=== PATIENT | female | born 1995 | race Caucasian/White ===

== ENCOUNTER 2018-07-02 16:15 | Outpatient (RCR) | payer OTHER ==
[2018-04-09 15:35] VITALS: BP 113/66; PULSE 86; TEMP 98.5
[2018-04-23 14:52] VITALS: BP 118/65; PULSE 95; TEMP 98.4
[2018-05-07 15:06] VITALS: BP 115/60; PULSE 99; TEMP 98
[2018-06-18 15:31] VITALS: BP 110/65; PULSE 95; TEMP 98.4
[~2018-07-02] VITALS: Ht 180.3 cm; Wt 101.0 kg
[2018-07-02 16:31] VITALS: BP 116/58; PULSE 96; TEMP 98.4
== END 2018-07-08 | disposition home or self-care (01) ==
LOC: EUO
DX: J45.909 Unspecified asthma, uncomplicated (principal); Z79.899 Other long term (current) drug therapy
CPT/HCPCS: J2357

== ENCOUNTER 2018-10-01 16:00 | Outpatient (RCR) | payer OTHER ==
[2018-07-17 15:14] VITALS: BP 128/63; PULSE 81; TEMP 98.3
[2018-07-31 15:04] VITALS: BP 124/62; PULSE 100; TEMP 97.6
[2018-08-13 15:36] VITALS: BP 111/63; PULSE 99; TEMP 99.3
[2018-08-18 16:08] VITALS: BP 118/72; PULSE 82; TEMP 98
[2018-09-04 07:06] VITALS: BP 127/65; PULSE 101; TEMP 98.3
[2018-09-18 15:24] VITALS: BP 116/59; PULSE 85; TEMP 98.2
[~2018-10-01] VITALS: Ht 180.3 cm; Wt 104.0 kg
[~2018-10-01 16:00] MED LIST: 00186-0370-20 IH; PROAIR HFA0.09 MG/AC IH
[2018-10-01 16:53] VITALS: BP 111/54; PULSE 96; TEMP 98.2
== END 2018-10-15 | disposition home or self-care (01) ==
LOC: EUO
DX: J45.909 Unspecified asthma, uncomplicated (principal)
CPT/HCPCS: J2357

== ENCOUNTER 2018-10-16 15:18 | Outpatient (RCR) | payer OTHER ==
[~2018-10-16] VITALS: Ht 180.3 cm; Wt 102.2 kg
[2018-10-16 14:30] VITALS: BP 120/71; PULSE 89; TEMP 98.1
== END 2018-10-16 15:24 | disposition home or self-care (01) ==
LOC: EUO 15:18
DX: J45.909 Unspecified asthma, uncomplicated (principal); Z79.899 Other long term (current) drug therapy